=== PATIENT | male | born 1940 | race Caucasian/White ===

== ENCOUNTER 2022-09-05 01:13 | Emergency (ER) | payer MEDICARE, BC | END 2022-09-05 03:15 | disposition home or self-care (01) | LOC: JD.ED 01:13 | DX: J32.9 Chronic sinusitis, unspecified (principal); I10 Essential (primary) hypertension | CPT/HCPCS: 99283 ==

== ENCOUNTER 2022-10-30 15:19 | Emergency (ER) | payer MEDICARE, BC ==
[2022-10-30] MEDS ORDERED: Dextrose 5%-0.9% NaCl with KCl 1,000 ML IV SCH (16:15)
== END 2022-10-30 17:23 | disposition home or self-care (01) ==
LOC: JD.ED 15:19
DX: I10 Essential (primary) hypertension (principal)
CPT/HCPCS: 96365; 99283; J3480; 99282

== ENCOUNTER 2024-11-09 00:53 | Emergency (ER) | payer MEDICARE, BC | END 2024-11-09 06:20 | disposition home or self-care (01) | LOC: JD.ED 00:53 | DX: I10 Essential (primary) hypertension (principal); E78.00 Pure hypercholesterolemia, unspecified; K21.9 Gastro-esophageal reflux disease without esophagitis; Z79.82 Long term (current) use of aspirin; Z79.899 Other long term (current) drug therapy | CPT/HCPCS: 99283; A9270 ==